=== PATIENT | female | born 1970 | race Caucasian/White ===

== ENCOUNTER → 2017-12-28 09:35 | Outpatient (CLI) | payer OTHER, SELFPAY ==
[2017-12-28 12:02] LABS: Erythrocyte Sedimentation Rate 29 mm/hr (0-20)
[2017-12-28 12:06] LABS: Absolute Lymphocyte Count 1.86 X10^3/ul (0.83-4.51); Basophil# 0.01 X10^3/uL; Basophil% 0.1 % (0-1); Eosinophil# 0.05 X10^3/uL; Eosinophils% 0.6 % (0-5); Hematocrit 39.1 % (37-47); Hemoglobin 13.1 g/dl (12.0-15.0); Lymphocyte # 1.86 X10^3/ul (4.0); Lymphocyte % 22.4 % (19-41); Mean Corp Hgb Conc 33.5 g/gl (32-36); Mean Corpuscular Volume 89.7 fL (81-99); Mean Platelet Vol. 10.4 fl (6.2-12.0); Monocyte# 0.36 X10^3/uL; Monocyte% 4.3 % (0-10); Neutrophil # 5.99 X10^3/uL (2.7-7.7); Neutrophil % 72.2 % (47-70); Platelet Count 193 K/mm3 (150-450); RBC Distribution Width CV 13.3 % (11.6-14.6); RBC Distribution Width SD 42.4 fl (35.1-43.9); Red Blood Count 4.36 M/mm3 (4.2-5.4); White Blood Count 8.3 K/mm3 (4.4-11.0)
[2017-12-28 12:21] LABS: ALB/GLOB Ratio 0.9 RATIO (0.9-2.4); AST(SGOT) 26 U/L (15-37); Alanine Aminotransfer ALT/SGPT 27 U/L (13-56); Albumin, Serum 3.6 g/dL (3.2-5.0); Alkaline Phosphatase 77 U/L (45-117); Anion Gap 13 (5-15); BUN 10 mg/dL (7-18); BUN/Creat Ratio 13.1 RATIO (10-20); CRP 8.76 mg/L (0.0-3.0); Calcium,Total 8.9 mg/dL (8.5-10.1); Chloride 103 mmol/L (98-107); Creatinine, Serum 0.76 mg/dL (0.55-1.02); EST Glomerular Filtration Rate 87 mL/min (>60); Est Glom Filt Rate - Afr Amer 105 mL/min (>60); Globulin 3.8 g/dL (2.2-4.2); Glucose 89 mg/dL (74-106); Potassium 3.8 mmol/L (3.5-5.1); Protein, Total 7.4 g/dL (6.4-8.2); Rheumatoid Factor < 10.0 IU/mL (<15); Sodium Level 140 mmol/L (136-145)
[2017-12-28 12:23] LABS: POSITIVE COUNT NO; POSITIVE DIFFERENTIAL NO; POSITIVE MORPHOLOGY NO
[2017-12-30 11:07] LABS: ANTINUCLEAR ANTIBODIES DIRECT Negative (Negative)
[2018-01-05 15:03] LABS: Endomysial Antibody IgA Negative (Negative); Immunoglobulin A 185 mg/dL (87-352); QNTFERON TB Ag Minus Nil Value 0 IU/mL (.); QNTFERON TB Ag Value 0.09 IU/mL (.); QNTFERON TB Mitogen Value > 10.00 IU/mL (.); QNTFERON TB Nil Value 0.09 IU/mL (.)
[2018-01-05 15:35] LABS: HEPATITIS B SURFACE AG Negative (Negative); Hep B Surface Antibodies Non Reactive (.); Hep C Antibodies 0.1 s/co ratio (0.0-0.9); QNTIFERON TB Gold Negative (Negative)
[2018-01-05 15:36] LABS: CCP IgG Antibodies 5 units (0-19); HLA B27 Negative (.); t-Transglutaminase IgA <2 U/mL (0-3)
== END ==
PROVIDERS: Family Provider Family Medicine; PCP Family Medicine; Visit Provider Internal Medicine Rheumatology
DX: M46.98 Unspecified inflammatory spondylopathy, sacral and sacrococcygeal region (principal)
CPT/HCPCS: 36415; 71046; 72170; 80053; 81374; 82784; 83516; 85025; 85652; 86038; 86140; 86200; 86255; 86431; 86480; 86706; 86803; 87340

== ENCOUNTER 2021-08-26 09:13 | Outpatient (CLI) | payer OTHER, SELFPAY ==
[2021-09-03 10:37] LABS: HPV APTIMA, High Risk Positive (Negative)
== END 2021-08-26 23:59 | disposition home or self-care (01) ==
LOC: LABSPEC 09:15
PROVIDERS: PCP Family Medicine; Visit Provider Student in an Organized Health Care Education/Training Program
DX: Z12.4 Encounter for screening for malignant neoplasm of cervix (principal)
CPT/HCPCS: 87624; 88175; G0145

== ENCOUNTER 2021-09-03 14:31 | Outpatient (CLI) | payer OTHER, SELFPAY ==
--- NOTE | 2021-09-03 14:34 | BI_ITS ---
MAMMOGRAPHY - BILATERAL SCREENING 3-D TOMOSYNTHESIS REASON FOR EXAM: Female, 51 years old. SCREENING PERTINENT HISTORY: No significant family history. TECHNIQUE: 2-D mammograms and 3-D Tomosynthesis of the breast (s) were performed. CAD was performed. COMPARISON: 08/24/2016 FINDINGS: The breast composition is composed of scattered fibroglandular density. Scattered benign calcifications are seen. No dense spiculated masses or suspicious microcalcifications are identified. No architectural distortion is identified. There is no skin thickening or retraction. There has been no significant change since the prior study. BI/SCRN MAMM (CAD)W/MADAN BILAT IMPRESSION: No mammographic signs of malignancy. Routine yearly mammograms recommended. ASSESSMENT CATEGORY: BIRADS Category 1: Negative. A letter regarding these results will be sent to the patient by the facility within 30 days. FOLLOW UP RECOMMENDATION: Yearly follow up mammogram recommended. (A) Approximately 10% of breast cancers are not detected by mammography. A normal mammogram should not delay biopsy of a clinically suspicious abnormality. Electronically Signed: Christos Harper MD at 15:19 EDT ,
== END 2021-09-03 23:59 | disposition home or self-care (01) ==
LOC: OPBI 14:32
PROVIDERS: PCP Family Medicine; Visit Provider Student in an Organized Health Care Education/Training Program
DX: Z12.31 Encounter for screening mammogram for malignant neoplasm of breast (principal)
CPT/HCPCS: 77063; 77067

== ENCOUNTER → 2021-10-17 | Outpatient (CLI) | payer OTHER, SELFPAY ==
--- NOTE | 2021-10-17 | IMM_PTH ---
PATIENT: AMY FERGUSON LOC: [facility] U#:[id number] AGE/SX: 51/F ROOM: RE10/17/[address]: Dr. Ana Miner DO : 1970 BED: DIS: 10/17/2021 SPEC #: [id number] RECD: 10/21/21 12:02 STATUS: JAH GARLAND #: [id number] MAG: 10/17/21 00:[address]: Ana Miner DEPT: IMMUNOHISTOCHEMISTRY RECD BY: Breanna Arana ENTERED: 10/21/21 12:04 SP TYPE: IMMUNO OTHR DR: Dr. Nimisha Park MD Tissues: Vagina, NOS Procedures: P53 (initial) KI-67 (add) PHYSICIAN & INSTITUTION [place] [id number] SPECIMEN INFORMATION: Tissue Source: Vaginal biopsy Clinical Info: HPV positive Specimen Number: [id number] CPT code: 41492, 40694 METHODOLOGY: Deparaffinized sections of prefer/formalin-fixed tissue or PAP/DQ stained slides are incubated with monoclonal/polyclonal antibodies/oligonucleotide probes. Localization is made via biotin free immunoperoxidase method. Appropriate controls are performed and reacted as expected. Results on target cell population are indicated in the following table: RESULTS: ANTIBODY / CLONE RESULT P53 (DO-7) negative Ki-67 (30-9) negative These tests were developed and their performance characteristics determined by [facility]. They may not have been cleared or approved by the [place]. Food and Drug Administration. The FDA has determined that such clearance or approval is not necessary. The above immunohistochemical/dualISH markers are ordered and reviewed by the Pathologist. INTERPRETATION: Vaginal lesion, biopsy: No evidence of HPV change. AM:solomon 10/22/2021
--- NOTE | 2021-10-17 | VAGMU_PTH ---
PATIENT: AMY FERGUSON LOC: [facility] U#:[id number] AGE/SX: 51/F ROOM: RE10/17/[address]: Dr. Ana Miner DO : 1970 BED: DIS: 10/17/2021 SPEC #: [id number] RECD: 10/17/21 15:51 STATUS: JAH HAQUE #: [id number] MAG: 10/17/21 00:[address]: Ana Miner DEPT: SURGICAL PATHOLOGY RECD BY: Mathew Moyer ENTERED: 10/20/21 08:31 SP TYPE: VAG MUCOSA OTHR DR: Dr. Nimisha Park MD Tissues: Vagina, NOS Procedures: Surgery Specimen Level III HEADER OPERATION: Colposcopy PRE-OP DIAGNOSIS: HPV positive TISSUE SUBMITTED: Vaginal biopsy MICROSCOPIC DIAGNOSIS Vaginal lesion, biopsy: Fragments of benign squamous mucosa See comment. AM:solomon 10/21/2021 COMMENT Immunohistochemistry ([id number]) for P53 and Ki-67 will be performed and results will be reported separately. Case has been reviewed in consultation with Dr. Pugh who concurs with the above diagnosis. IDC:SJ MICROSCOPIC DESCRIPTION Slides are reviewed. GROSS DESCRIPTION Received in fixative is one container labeled with the patient's name and designated vaginal biopsy. The specimen consists of two irregular fragments of hinojosa soft tissue that in aggregate measure 0.6 x 0.3 x 0.1 cm. The specimen is totally submitted in one cassette. / LUIS CARLOS:solomon 10/20/2021 TC:5 CPT: 29185
== END | disposition home or self-care (01) ==
LOC: LABSPEC 15:40
PROVIDERS: PCP Family Medicine; Visit Provider Student in an Organized Health Care Education/Training Program
DX: D28.1 Benign neoplasm of vagina (principal)
CPT/HCPCS: 88304; 88341; 88342